=== PATIENT | female | born 1940 | race Caucasian/White ===

== ENCOUNTER 2019-01-06 05:58 | Day surgery (SDC) | payer OTHER ==
[~2019-01-06] VITALS: Ht 152.4 cm; Wt 48.2 kg
[~2019-01-06 05:58] MED LIST: SODIUM CHLORIDE 0.9% 1,000 ML IV ONE
[2019-01-06] MEDS ORDERED: LIDOCAINE 4% 50 ML SOLUTION TP ONE (05:59)
[2019-01-06] MEDS ORDERED: BENZOCAINE 20% 50 MCG/SPRAY 57 GM TP ONE (05:59)
[2019-01-06] MEDS ORDERED: LIDOCAINE 2% 30 ML JELLY TP ONE (05:59)
[2019-01-06] MEDS ORDERED: ALBUTEROL SULFATE 2.5 MG/0.5 ML NEB SOLUTION NEB ONE (05:59)
[2019-01-06] MEDS ORDERED: FAMO20 PO (06:17)
[2019-01-06] MEDS ORDERED: MONT10TA21 PO (06:17)
[2019-01-06] MEDS ORDERED: ASPI81 PO (06:17)
[2019-01-06] MEDS ORDERED: ALBU8HFA IH (06:17)
[2019-01-06] MEDS ORDERED: SODIUM CHLORIDE 0.9% 1,000 ML IV ONE (06:30)
[2019-01-06] MEDS ORDERED: MIDAZOLAM HCL 2 MG/2 ML VIAL ONE (08:02)
[2019-01-06] MEDS ORDERED: FentaNYL CITRATE-PF 100 MCG/2 ML VIAL ONE (08:03)
[2019-01-06] MEDS ORDERED: MethylPREDNISolone SOD SUCC 125 MG/2 ML VIAL ONE (08:23)
[2019-01-06] MEDS ORDERED: MethylPREDNISolone SOD SUCC 125 MG/2 ML VIAL IVP ONE (08:45)
[2019-01-06] MEDS ORDERED: OXYGEN THERAPY IH SCH (20:00)
== END 2019-01-06 10:05 | disposition home or self-care (01) ==
LOC: SURGERY 05:58
PROVIDERS: ATTEND Internal Medicine Critical Care Medicine
DX: R05 Cough (principal); R91.1 Solitary pulmonary nodule; J38.4 Edema of larynx; J34.89 Other specified disorders of nose and nasal sinuses; J98.8 Other specified respiratory disorders; B37.0 Candidal stomatitis; J45.909 Unspecified asthma, uncomplicated; Z79.899 Other long term (current) drug therapy
CPT/HCPCS: 31623; 31624; 71045; 87015; 87070; 87101; 87205; 87206; 87220; 88108; 88312; J2250; J2930; J3010; J7030